=== PATIENT | female | born 2005 | race Caucasian/White ===

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

== ENCOUNTER 2024-06-11 15:23 | Outpatient (REF) | payer MEDICAID, SELFPAY | END 2024-06-11 15:24 | disposition home or self-care (01) | LOC: NCHCN 15:23 | PROVIDERS: PCP Internal Medicine; Visit Provider Nurse Practitioner Family | DX: N89.8 Other specified noninflammatory disorders of vagina (principal) | CPT/HCPCS: 87480; 87510; 87660 ==

== ENCOUNTER 2024-10-04 00:13 | Outpatient (CLI) | payer MEDICAID, SELFPAY ==
--- NOTE | 2024-10-04 06:30 | DI.US_ITS ---
Exam(s) US PELVIS EXAM: US PELVIS CLINICAL HISTORY: anatomy,PRIMARY DYSMENORRHEA,N94.4. TECHNIQUE: Transabdominal pelvic ultrasound was performed using standard protocol. The patient decl ined the transvaginal portion of the examination. COMPARISON: No exams were available for comparison FINDINGS: UTERUS: Position: Anteverted. Size: 7.3 long by 4.1 AP by 6.2 transverse cm Endometrium: 0.8 cm. Normal for patient's menstrual status. Myometrium: Unremarkable. Cervix: Unremarkable. OVARIES: The left ovary was not visualized transabdominally. Right: 3.6 x 2.1 x 2.3 cm Cyst or mass: No suspicious cystic or solid masses. DOPPLER: Color: Symmetric and uniform flow to both ovaries. CUL-DE-SAC: Free fluid: None. Other: None. IMPRESSION: 1. The patient declined the transvaginal portion of the examination. 2. Normal-appearing uterus with endometrial stripe within normal limits. 3. Right ovary is unremarkable. The left ovary was not visualized transabdominally. DATA REPOSITORY:
== END 2024-10-04 00:33 ==
PROVIDERS: PCP Family Medicine; Visit Provider Obstetrics & Gynecology
DX: N94.4 Primary dysmenorrhea (principal)
CPT/HCPCS: 76856

== ENCOUNTER 2024-12-09 16:30 | Outpatient (REF) | payer MEDICAID, SELFPAY | END 2024-12-09 16:31 | disposition home or self-care (01) | LOC: LBN 16:30 | PROVIDERS: PCP Family Medicine; Visit Provider Obstetrics & Gynecology | DX: R30.0 Dysuria (principal) | CPT/HCPCS: 87086 ==

== ENCOUNTER 2025-01-10 14:42 | Outpatient (REF) | payer MEDICAID, SELFPAY ==
[2025-01-10 15:06] LABS: Abs Immature Grans 0.03 10^3/uL (0.0-0.06); Absolute Basophil Count 0.03 10^3/uL (0.0-0.2); Absolute Eosinophil Count 0.04 10^3/uL (0.0-0.7); Absolute Lymphocyte Count 2.78 10^3/uL (1.2-3.4); Absolute Monocyte Count 0.41 10^3/uL (0.1-0.8); Absolute Neutrophil Count 4.85 10^3/uL (1.2-6.7); Basophils % 0.4 %; Eosinophils % 0.5 %; HCT 40.7 % (36.0-46.0); HGB 13.6 g/dL (11.2-15.7); Immature Grans % 0.4 %; Lymphocytes % 34.2 %; MCH 28.9 pg (27.0-33.0); MCHC 33.4 % (32.0-36.0); MCV 86 fL (80-95); MPV 9.3 fL (8.0-11.0); Neutrophils % 59.5 %; Platelet Count 333 10^3/uL (130-400); RBC 4.71 10^6/uL (3.93-5.22); RDW 12.4 % (11.7-14.6); RDW-SD 39.3 fL; WBC 8.14 10^3/uL (4.4-10.8)
[2025-01-10 15:51] LABS: ALT 30 U/L (14-59); AST 16 U/L (15-37); Albumin 3.5 g/dL (3.4-5.0); Alkaline Phosphatase 60 U/L (46-116); Anion Gap 8.3 mmol/L (3-11); BUN 9 mg/dL (7-18); Bilirubin, Total 0.4 mg/dL (0.2-1.0); CO2 28.7 mmol/L (21.0-32.0); Chloride 103 mmol/L (98-107); Estimated GFR 82.71 (mL/min/1.73m2); Glucose 59 mg/dL (74-106); Potassium 4.1 mmol/L (3.5-5.1); Sodium 140 mmol/L (136-145); TSH 1.52 uIU/mL (0.36-3.74); Total Protein 7.1 g/dL (6.4-8.2)
[2025-01-10 22:47] LABS: T3,Free 4.4 pg/mL (2.8-5.3)
== END 2025-01-10 14:43 | disposition home or self-care (01) ==
LOC: NCHCN 14:42
PROVIDERS: PCP Family Medicine; Visit Provider Family Medicine
DX: N92.0 Excessive and frequent menstruation with regular cycle (principal)
CPT/HCPCS: 80053; 84439; 84443; 84481; 85025

== ENCOUNTER 2025-03-10 04:11 | Outpatient (CLI) | payer MEDICAID, SELFPAY ==
[2025-03-10 14:44] LABS: Abs Immature Grans 0.02 10^3/uL (0.0-0.06); HCT 42.5 % (36.0-46.0); HGB 14.3 g/dL (11.2-15.7); Immature Grans % 0.3 %; MCH 28.2 pg (27.0-33.0); MCHC 33.6 % (32.0-36.0); MCV 84 fL (80-95); MPV 9.1 fL (8.0-11.0); Platelet Count 327 10^3/uL (130-400); RBC 5.07 10^6/uL (3.93-5.22); RDW 12.0 % (11.7-14.6); RDW-SD 35.8 fL; WBC 7.24 10^3/uL (4.4-10.8)
== END 2025-03-10 04:12 | disposition home or self-care (01) ==
LOC: LBO 04:12
PROVIDERS: PCP Family Medicine; Visit Provider Obstetrics & Gynecology
DX: Z01.818 Encounter for other preprocedural examination (principal)
CPT/HCPCS: 36415; 86850; 86900; 86901; 85025

== ENCOUNTER 2025-03-12 07:29 | Day surgery (SDC) | payer MEDICAID, SELFPAY ==
[2025-03-12] VITALS (26 sets, daily range): BP systolic 92–129; BP diastolic 39–73; PULSE 47–83; RESP 9–16; TEMP 36.1–36.8; O2SAT 96–100; BMI 24.0
--- NOTE | 2025-03-12 08:20 | W.ANESPRE ---
General Info Date of Service Date Performed: 03/12/25 Height: 5 ft 1 in Weight: 57.7 kg Body Mass Index (BMI): 24.0 Surgical Procedure: Operation Date: 03/12/25 09:40 Proposed Procedure Side Surgeon p Diagnostic, Possible Operative Laparoscopy Keyana Cisneros DO Meds Allergies and Home Medications Allergies Allergy/AdvReac Type Severity Reaction Status Date / Time No Known Allergies Allergy Verified 03/12/25 07:45 Home Medication ?Medication ?Instructions ?Recorded sertraline 25 mg tablet 25 mg PO HS 03/10/25 Current Visit Medications: Current Medications Generic Name Dose Route Start Last Admin Trade Name Freq PRN Reason Stop Dose Admin Ringer's Solution 1,000 mls @ 125 mls/hr 03/12/25 06:00 IV 03/12/25 23:59 INFUSION ERICK IV Miscellaneous Supplies 1 each 03/12/25 06:00 Iv Access IV 03/12/25 23:59 DIRECTED ERICK Sodium Chloride 0 ml 03/12/25 06:00 Normal Saline Flush 10 Ml Syr IV 03/12/25 23:59 PRN PRN Sodium Chloride 0 ml 03/12/25 06:00 Normal Saline 10 Ml Vial IJ 03/12/25 23:59 DIRECTED PRN Sterile Water 0 ml 03/12/25 06:00 Water,Injection,Sterile 10 Ml Vial IJ 03/12/25 23:59 DIRECTED PRN PFSH Active Problems Active Problems: Problem Status Onset Code Primary dysmenorrhea Acute N94.4 Medical History Medical History Anxiety Medical History Comments:: Pt states had had a chronic cough for over 10 years, unable to find a reason Surgical History Surgical History Hx of wisdom tooth extraction History of tonsillectomy Tobacco Smoking/Tobacco Use Status: Never Passive smoking exposure: No Alcohol Alcohol Intake: never Substance Use Substance use type: does not use Vital Signs and Lab Results Vital Signs Most Recent Vital Signs in EMR: Most Recent Vital Signs Temp Pulse Resp BP Pulse Ox 36.8 C 83 16 129/73 100 03/12/25 07:38 03/12/25 07:38 03/12/25 07:38 03/12/25 07:38 03/12/25 07:38 Point of Care Results Point of Care Results: POC- Test(urine) Negative 03/12/25 08:10 Lab Results Blood Type / Crossmatch: Antibody Screen NEGATIVE 03/10/25 Complete Blood Count: WBC, (4.4-10.8) 7.24 10^3/uL 03/10/25, 14:27 RBC, (3.93-5.22) 5.07 10^6/uL 03/10/25, 14:27 Hgb, (11.2-15.7) 14.3 g/dL 03/10/25, 14:27 Hct, (36.0-46.0) 42.5 % 03/10/25, 14:27 Plt Count, (130-400) 327 10^3/uL 03/10/25, 14:27 Anesthesia Assessment and Plan Anesthesia History Personal History: No History of Anesthesia Complications Family History: No Family History of Anesthesia Complications Exercise Tolerance Exercise Tolerance: Metabolic Equivalents>4 Pertinent Negatives Pertinent Negatives: No Symptoms of GERD, No Major Cardiovascular Symptoms or Complaints, No Major Pulmonary Symptoms or Complaints and No History of CVA/TIA Cardiac & Pulmonary Exam Cardiac Exam: Normal S1/S2 Heart Sounds Pulmonary Exam: Clear Bilateral Breath Sounds Cardiac and Pulmonary Comment:: Chronic cough Implantable Cardiac Device Does patient have a Pacemaker or an ICD?: No Airway Exam Known Difficult Airway: No Mallampati Class: 2 Mouth Opening: Normal (> 3cm) Thyromental Distance: Greater than 3 cm Neck Range of Motion: Full ROM Neck Circumference: Normal Teeth Condition: Normal Dentition ASA Classification ASA Score: ASA 2 Emergency Case?: No NPO Status NPO Status: NPO Clears >2 hours, Solids >8 hours Status Status: Negative HCG Anesthesia Plan Resuscitation Status: Full Code Anesthesia Technique: General Anesthesia Airway Planned: Endotracheal Tube Monitors Used: Standard Monitors
[2025-03-12] MEDS: Lactated Ringers 1,000 ML 125 ML IV (08:30)
[2025-03-12] MEDS: Bupivacaine 0.5% Pres-Free 30 ML VIAL (09:56)
--- NOTE | 2025-03-12 10:27 | W.PM.OP ---
Operative Note Operative Note PRE-OP DIAGNOSIS: Chronic abdominal and pelvic pain, dysmenorrhea POST-OP DIAGNOSIS: same (Stage I endometriosis, posterior cul-de-sac. Markedly dilated colon) PROCEDURE: Diagnostic laparoscopy SURGEON: Keyana Cisneros ASSISTING SURGEON: Karen Coleman ANESTHESIA TYPE: Local By Surgeon and General LMA/ETT Refer to Anesthesia Record ESTIMATED BLOOD LOSS: 10 PATHOLOGY: none sent COMPLICATIONS: None Patient was transported to: PACU Patient's condition: stable Indications: Ongoing chronic abdominal and pelvic pain and primary dysmenorrhea Findings: Normal-appearing tubes, ovaries, uterus. Small implant of endometriosis in the posterior cul-de-sac. Markedly dilated colon throughout. No evidence of intra or abdominal trauma, or additional pathology Procedure Description: After full informed consent was obtained and negative status verified, patient voided to empty her bladder. She is taken the operating suite with an IV running. She is placed in dorsal supine position and endotracheal intubation performed for the administration of general anesthesia with ease. She had pneumatic compression stockings placed for DVT prophylaxis and no antibiotic prophylaxis was warranted. She was then placed in the modified dorsal lithotomy position and prepped and draped in the usual sterile fashion. A timeout was held. Exam under anesthesia revealed a uterus that was midline and mobile. Attention was turned to the vaginal vault where speculum was placed into the vaginal vault. A single-tooth tenaculum was used to grasp the anterior lip of the cervix for uterine manipulation during her procedure. At this point, attention was turned to the abdomen where half percent Marcaine was used to infiltrate at the umbilicus. A small incision was made and sharp towel clips used to elevate the anterior abdominal wall. Veress needle inserted into the abdomen and pneumoperitoneum created to a maximum pressure of 15 mmHg of CO2 gas. At this point a 5 mm Optiview was used for direct insertion with visualization of a 5 mm port and scope. At this point, the entire abdomen was visualized. A second right lower quadrant trocar site was placed after infiltration of half percent Marcaine with direct visualization. This allowed for manipulation of the intra-abdominal and pelvic contents. There was no evidence of trauma. Ovaries appeared normal bilaterally. Fallopian tubes are normal. Uterus is small, midline, and mobile. With elevation of the uterus, in the deep posterior cul-de-sac there were noted to be dark implants of endometriosis, maximum size approximately 1 cm in greatest dimension. There was no other scarring or endometriosis implants visualized. Photographs were taken. As of note, there was markedly dilated colon from the cecum, through the transverse colon, to the rectosigmoid colon. At this point with visualization of all appropriate structures and no evidence of other intra-abdominal pathology or trauma, procedure was terminated. Pneumoperitoneum released. The 5 mm right lower quadrant trocar site and umbilical trocar site were removed. Skin edges were reapproximated with 4-0 undyed Monocryl and Steri-Strips and sterile dressing were placed. Single-tooth tenaculum was removed from the anterior lip of the cervix and the patient was returned to the dorsal supine position. She awoke from anesthesia without difficulty. She was taken to the postanesthesia care unit in stable condition. EBL: 5 mL Fluids: 400 mL of normal saline per anesthesia Complications: None apparent Pathology: None sent Findings: 1. Small amount of endometriosis implants in the deep posterior cul-de-sac, stage I endometriosis 2. Markedly dilated colon from cecum to rectosigmoid colon. Date of Procedure: 03/12/25
[2025-03-12] MEDS: ACETAMINOPHEN 1,000 MG/100 ML BAG 400 MG IVPB (11:08)
--- NOTE | 2025-03-12 11:12 | W.ANESPOSTOP ---
Postoperative Evaluation Date, Time and Location Date Performed: 03/12/25 Time Performed: 11:04 Patient Location: PACU Vital Signs Most Recent Imported Vital Signs: Most Recent Vital Signs Temp Pulse Resp BP Pulse Ox 36.6 C 52 L 14 93/54 L 100 03/12/25 11:00 03/12/25 10:56 03/12/25 10:56 03/12/25 10:55 03/12/25 10:56 Pain Score Most Recent Pain Score: Most Recent Pain Score Pain Level 6 03/12/25 11:00 Assessment Mental Status: Awake (Alert & Oriented to Patient Baseline) Airway and Respiratory Function: Patent airway with normal (patient baseline) respiratory exam Cardiovascular Function: Hemodynamically Stable Hydration Status: Adequately Hydrated Nausea & Vomiting: No Nausea or Vomiting Pain: Pain is tolerable per patient (plan to give IV acetaminophen ) Peripheral Nerve Block: Patient did not receive a nerve block
== END 2025-03-12 13:30 | disposition home or self-care (01) ==
PROVIDERS: PCP Family Medicine; Visit Provider Obstetrics & Gynecology
PROC: (CPT 49320; principal; 2025-03-12 09:30)
DX: N94.4 Primary dysmenorrhea (principal); N80.329 Endometriosis of the posterior cul-de-sac, unspecified depth; K59.39 Other megacolon; G89.29 Other chronic pain; R10.2 Pelvic and perineal pain
CPT/HCPCS: 49320; 81025; J0131; J0665; J1100; J1885; J2003; J2405; J2704

== ENCOUNTER 2025-06-27 16:44 | Outpatient (REF) | payer MEDICAID, SELFPAY ==
[2025-06-27 21:20] LABS: HCT 39.7 % (36.0-46.0); HGB 13.4 g/dL (11.2-15.7); MCH 27.9 pg (27.0-33.0); MCHC 33.8 % (32.0-36.0); MCV 83 fL (80-95); MPV 9.3 fL (8.0-11.0); Platelet Count 306 10^3/uL (130-400); RBC 4.81 10^6/uL (3.93-5.22); RDW 12.6 % (11.7-14.6); RDW-SD 38.2 fL; WBC 7.29 10^3/uL (4.4-10.8)
[2025-06-27 21:37] LABS: ALT 25 U/L (10-49); AST 26 U/L (<34); Albumin 4.4 g/dL (3.2-5.0); Alkaline Phosphatase 69 U/L (46-116); Anion Gap 10.6 mmol/L (3-11); BUN 11 mg/dL (9-23); Bilirubin, Total 0.40 mg/dL (0.2-1.2); CO2 24.4 mmol/L (20.0-31.0); Calcium 9.5 mg/dL (8.3-10.6); Chloride 104 mmol/L (98-107); Cholesterol 183 mg/dL (<200); Glucose 95 mg/dL (74-106); HDL Cholesterol 52 mg/dL (>40); Potassium 4.2 mmol/L (3.5-5.1); Sodium 139 mmol/L (136-145); Total Protein 6.9 g/dL (5.7-8.2)
[2025-06-30 09:30] LABS: Lyme Ab w Rflx to Lyme Confirm Negative (Negative)
[2025-07-01 14:41] LABS: B. miyamotoi PCR Negative (Negative); Babesia divergens/MO-1 Negative (Negative); Ehrlichia muris eauclairensis Negative (Negative)
== END 2025-06-27 16:45 | disposition home or self-care (01) ==
LOC: NCHCN 16:44
PROVIDERS: PCP Family Medicine; Visit Provider Family Medicine
DX: R07.9 Chest pain, unspecified (principal); R00.0 Tachycardia, unspecified; F41.9 Anxiety disorder, unspecified
CPT/HCPCS: 80053; 80061; 85027; 87798; 86618

== ENCOUNTER 2025-07-23 13:53 | Outpatient (REF) | payer MEDICAID, SELFPAY ==
[2025-07-23 16:52] LABS: C-Reactive Protein < 0.50 mg/dL (<=0.50)
== END 2025-07-23 13:54 | disposition home or self-care (01) ==
LOC: NCHCN 13:53
PROVIDERS: Surgery; PCP Family Medicine; Visit Provider Family Medicine
DX: M79.10 Myalgia, unspecified site (principal); K59.9 Functional intestinal disorder, unspecified
CPT/HCPCS: 85652; 83516; 86038; 86140; 86431